=== PATIENT | female | born 1945 | race Caucasian/White ===

== ENCOUNTER 2018-11-30 07:18 | Inpatient (IN) | payer OTHER ==
[~2018-11-30] VITALS: Ht 149.9 cm; Wt 52.6 kg
--- NOTE | 2018-11-30 07:20 | NUR ---
MABEL CUEVAS ALS TO ER BED 07
--- NOTE | 2018-11-30 07:20 | NUR ---
MASON FROM HOME FOR WEAKNESS, BS 231. PT [place]OV[place] SPEAKING. PER EMS FOUND PT ON FLOOR & URINE INCONTINENT, TOOK SLEEPING PILLS BUT DOESN'T KNOW WHEN OR HOW MANY PILLS. PT AWAKE, ALERT, OREINTED. PERRL, BRISK, 2MM. FACIAL ASSYMETRY. MILD WEAKNESS STRENGTH TO RICHARD UPPER AND LOWER EXTREMITIES. PT PLACED ON FULL PEDIATRIC CNS. HOB UP. BED SIDE RAILS UP X 1. ON LOW BED POSITION, LOCKED ER MADE AWARE OF PT STATUS.
[2018-11-30 07:22] VITALS: BP 153/82
[2018-11-30] MEDS ORDERED: NACL 0.9% 500 ML IV SCH (07:25)
--- NOTE | 2018-11-30 07:30 | NUR ---
CODE BRAIN INITIATED. TO CT. SCAN MONITORED WITH RN
--- NOTE | 2018-11-30 07:53 | NUR ---
EKG AT BEDSIDE.
[2018-11-30 08:11] LABS: BASOPHILS % (AUTO) 0.1 % (0.0-2.0); EOSINOPHILS % (AUTO) 0.1 % (0.0-4.0); HEMATOCRIT 35.1 % (36-48); LYMPHOCYTES # (AUTO) 0.4 K/uL (2.5-16.5); LYMPHOCYTES % (AUTO) 7.1 % (20.5-51.1); MEAN CORPUSCULAR HEMOGLOBIN 31 pg (27-31); MEAN CORPUSCULAR HGB CONC 34 g/dL (33-37); MEAN CORPUSCULAR VOLUME 91.5 fL (80-94); MONOCYTES # (AUTO) 0.4 K/uL (0.8-1.0); MONOCYTES % (AUTO) 7.1 % (1.7-9.3); NEUTROPHILS # (AUTO) 5.1 K/uL (1.8-7.7); NEUTROPHILS % (AUTO) 85.6 % (42.2-75.2); PLATELET COUNT (AUTO) 126 K/uL (140-450); RED BLOOD CELL COUNT(AUTO) 3.83 MIL/uL (4.20-5.40); WHITE BLOOD COUNT (AUTO) 5.9 K/uL (4.8-10.8)
--- NOTE | 2018-11-30 08:36 | NUR ---
spoke with pt in Burundian via signal tower director #[id number]
[2018-11-30 09:06] LABS: CHLORIDE 97 mmol/L (98-107); POTASSIUM 3.9 mmol/L (3.5-5.1); SODIUM SERUM 138 mmol/L (136-145)
[2018-11-30 09:07] LABS: ANION GAP 15.6 (8-16); ASPARTATE AMINOTRANSFERASE 29 U/L (15-37); CARBON DIOXIDE 29.3 mmol/L (21-32); CREATININE 0.9 mg/dL (0.6-1.3); GLUCOSE 164 mg/dL (74-106); TOTAL BILIRUBIN 0.7 mg/dL (0.0-1.0); UREA NITROGEN, BLOOD 15 mg/dL (7-18)
[2018-11-30 09:08] LABS: ALBUMIN 3.6 g/dL (3.4-5.0)
[2018-11-30 09:08] LABS: APPEARANCE,URINE HAZY (CLEAR); BILIRUBIN,URINE NEGATIVE (NEGATIVE); BLOOD, URINE TRACE-L (NEGATIVE); COLOR,URINE YELLOW (YELLOW); LEUKOCYTE ESTERASE ,URINE NEGATIVE (NEGATIVE); NITRITE, URINE NEGATIVE (NEGATIVE); UGLUCOSE 3+ (NEGATIVE)
--- NOTE | 2018-11-30 09:08 | NUR ---
PT ASLEEP. EASILY AROUSABLE BY NAME. ABLE TO UNDERSTAND AND NOD TO YES OR NO QUESTIONS.
--- NOTE | 2018-11-30 09:12 | NUR ---
Ayo vilchis in [facility] - 11/30/18 at 1042 by MEDRAFAEL FAMILY AT BEDSIDE FOR PT VISITATION.
[2018-11-30 09:15] LABS: PROTHROMBIN TIME 9.3 secs (10.8-13.4)
[2018-11-30 09:22] LABS: RBC,URINE 0-5 /HPF (0-5); WBC,URINE 0-5 /HPF (0-5)
--- NOTE | 2018-11-30 09:25 | NUR ---
Ayo vilchis in [facility] - 11/30/18 at 1042 by RUBA FAMILY LEFT AT THIS TIME
[2018-11-30 09:26] LABS: BARBITURATE, URINE NEGATIVE ng/ml (NEG <=200); BENZODIAZEPINE, URINE NEGATIVE ng/mL (NEG <=200); CANNABINOID, URINE NEGATIVE ng/mL (NEG <=50); COCAINE, URINE NEGATIVE ng/mL (NEG <=300); PHENCYCLIDINE SCREEN,URINE NEGATIVE ng/mL (NEG <=25)
[2018-11-30 09:28] LABS: OPIATE, URINE NEGATIVE ng/mL (NEG <=2000)
--- NOTE | 2018-11-30 10:00 | NUR ---
STILL AWAITING FOR FAMILY
--- NOTE | 2018-11-30 10:15 | NUR ---
PT ASLEEP. EASILY AROUSABLE BY NAME. ACTING APPROPRIATELY. PT GIVEN SIPS OF WATER. OK TO GIVE WATER PER DR GRANT. PT TOLERATED WELL. NO SIGNS AND SYMPTOMS OF DISTRESS NOTED.
[2018-11-30] MEDS ORDERED: HYDROcodone/APAP 5/325 MG 1 TAB TAB PO PRN (10:45)
[2018-11-30] MEDS ORDERED: MORPHINE SULFATE 4 MG/ML SYR IVP PRN (10:45)
[2018-11-30] MEDS ORDERED: ACETAMINOPHEN 325 MG TAB PO PRN (10:45)
[2018-11-30] MEDS ORDERED: DOCUSATE SODIUM 100 MG GELCAP PO PRN (10:45)
[2018-11-30] MEDS ORDERED: ONDANSETRON 4 MG/2 ML VIAL IM/IVP PRN (10:45)
[2018-11-30] MEDS ORDERED: NACL 0.9% 1,000 ML IV ONE (10:50)
[2018-11-30] MEDS: NACL 0.9% 1,000 ML IV SCH ×2 (11:03→12:15)
--- NOTE | 2018-11-30 11:15 | NUR ---
PT'S CURRENT V/S IS 173/68, 97. DR MADE AWARE OF PT VITAL SIGNS. NO NEW ORDERS GIVEN AT THIS TIME.
--- NOTE | 2018-11-30 11:45 | NUR ---
Patient will be admitted to care of Dr. Kiser. Admited to Tele. Will go to room 121 B.. Belongings list completed. Report to ALVINA Lenz.
--- NOTE | 2018-11-30 11:45 | NUR ---
KRISHNA (PATIENT'S SON) CONTACT # [phone] CARLOS (PT'S FRIEND) CONTACT # [phone]
--- NOTE | 2018-11-30 11:49 | NUR ---
RECEIVED BEDSIDE REPORT FROM ED RN. PT IS [place] SPEAKING ONLY, WILL NEED TO COMPLETE SUBJECTIVE ASSESSMENT VIA INSURANCE APPRAISER. NO S/S DISTRESS. LUNGS CTA. ALL SAFETY PRECAUTIONS IN PLACE, WILL CONTINUE TO MONITOR.
[2018-11-30 11:58] LABS: FREE T4 (FREE THYROXINE) 1.03 ng/dL (0.76-1.46); MAGNESIUM 2.1 mg/dL (1.8-2.4); PHOSPHORUS 3.6 mg/dL (2.5-4.9); THYROID STIMULATING HORMONE 1.34 uIU/mL (0.34-3.74)
[2018-11-30 12:00] VITALS: BP 176/81
--- NOTE | 2018-11-30 12:10 | NUR ---
NOTIFIED DR. LEONE THAT PT'S BP IS 176/81.
--- NOTE | 2018-11-30 12:54 | NUR ---
ATTEMPTED TO OBTAIN ADMISSION ASSESSMENT VIA CORPORATE FINANCIAL ANALYST #[id number]. PER CORPORATE FINANCIAL ANALYST, PATIENT'S RESPONSE TO QUESTIONS DOES NOT MAKE SENSE. PT TALKING ABOUT "HOLE" AND "WEAR". UNABLE TO RESPOND APPROPRIATELY TO QUESTIONING. WILL ATTEMPT TO REACH FAMILY FOR ADMISSION ASSESSMENT QUESTIONS.
--- NOTE | 2018-11-30 12:57 | NUR ---
PAGED DR. FRANCOIS VIA [employer] FOR BP 176/81.
--- NOTE | 2018-11-30 13:14 | NUR ---
OBTAINED SOME ADMISSION ASSESSMENT INFO FROM NATASHA GRIFFITH [phone]. SON DOES NOT KNOW FULL HISTORY, AND PATIENT IS UNABLE TO ANSWER ADMISSION QUESTIONS NOW.
--- NOTE | 2018-11-30 13:59 | NUR ---
FOLLOWED UP WITH DR. FRANCOIS REGARDING BP. DR. FRANCOIS TO PLACE ORDER.
--- NOTE | 2018-11-30 14:36 | NUR ---
PT RESTING IN BED, EYES CLOSED, RESPIRATIONS EVEN AND UNLABORED. ALL SAFETY PRECAUTIONS IN PLACE, WILL CONTINUE TO MONITOR.
--- NOTE | 2018-11-30 14:43 | NUR ---
LEFT MESSAGE FOR CENTRAL SUPPLY TO BRING SCD'S.
[2018-11-30 15:00] VITALS: BP 181/81
[2018-11-30] MEDS ORDERED: ENALAPRILAT 2.5 MG/2 ML VIAL IVP SCH (15:00)
--- NOTE | 2018-11-30 17:42 | NUR ---
NOTIFIED DR. FRANCOIS THAT PATIENT HAS BEEN VERY CONFUSED. UNSURE IF PATIENT WOULD BE ABLE TO TAKE PO METOPROLOL JUST ORDERED NOW. DR. FRANCOIS TO START METOPROLOL TOMORROW, AFTER SWALLOW EVAL.
[2018-11-30] MEDS ORDERED: DEXTROSE 50% 50 ML SYR IVP PRN (17:50)
[2018-11-30] MEDS ORDERED: INSULIN LISPRO SLIDING SCALE 100 UNITS/ML VIAL SUBQ PRN (17:50)
[2018-11-30] MEDS ORDERED: METOPROLOL SUCCINATE 50 MG TABER PO SCH (18:00)
--- NOTE | 2018-11-30 18:15 | NUR ---
UNABLE TO SAFELY OBTAIN ORTHOSTATIC BP AT THIS TIME. PATIENT IS VERY CONFUSED. WILL ENDORSE.
[2018-11-30] MEDS: DEXT 5% / NACL 0.9% 500 ML IV SCH (18:29)
--- NOTE | 2018-11-30 18:31 | NUR ---
NATASHA SANDOVAL) AT BEDSIDE. ASKED SON TO BRING LIST OF HOME MEDICATIONS SOON POSSIBLE. SON VERBALIZED UNDERSTANDING.
--- NOTE | 2018-11-30 19:18 | NUR ---
ENDORSED POC TO WHEEL SETTER RN. PT IN STABLE CONDITION. ENDORSED ORTHOSTATIC BP. INFORMED WHEEL SETTER RN THAT SON HAS BEEN NOTIFIED TO BRING HOME MED LIST.
--- NOTE | 2018-11-30 19:30 | NUR ---
Received endorsement from AM shift RN; patient is A/Ox1, unable to answer questions, Moldovan speaking only. Son is present; introduced self, updated board. No SOB or distress noted, on room air. IV site on left wrist, 20 gauge, intact, running IVF at 60mL/hr. Skin intact. Shepherd in place. Bed in the lowest position, call light within reach. Initial assessment done. Will continue to monitor.
[2018-11-30 20:00] VITALS: BP 129/75
--- NOTE | 2018-11-30 20:40 | NUR ---
Vitals taken, no distress noted.
[2018-11-30] MEDS: BLOOD GLUCOSE MONITORING 1 DEV DEV FS SCH (21:53)
--- NOTE | 2018-11-30 22:35 | NUR ---
Rounds done; patient asleep, visible chest rise and fall noted.
[2018-12-01] VITALS: BP 141/73
--- NOTE | 2018-12-01 00:45 | NUR ---
Checks made; patient asleep. No distress noted.
[2018-12-01] MEDS: DEXT 5% / NACL 0.9% 500 ML IV SCH (02:05)
--- NOTE | 2018-12-01 02:27 | NUR ---
Frequent checks made; no SOB noted. Patient sleeping, visible chest rise and fall noted.
[2018-12-01 04:00] VITALS: BP 119/68
--- NOTE | 2018-12-01 04:10 | NUR ---
Vitals taken; patient asleep visible chest rise and fall noted.
[2018-12-01] MEDS: BLOOD GLUCOSE MONITORING 1 DEV DEV FS SCH ×4 (06:30→20:19)
[2018-12-01 06:50] LABS: BASOPHILS % (AUTO) 0.2 % (0.0-2.0); EOSINOPHILS # (AUTO) 0.1 K/uL (0-0.4); EOSINOPHILS % (AUTO) 1.1 % (0.0-4.0); HEMATOCRIT 32.1 % (36-48); HEMOGLOBIN 10.7 g/dL (12.0-16.0); LYMPHOCYTES # (AUTO) 1.1 K/uL (2.5-16.5); LYMPHOCYTES % (AUTO) 18.8 % (20.5-51.1); MEAN CORPUSCULAR HEMOGLOBIN 31 pg (27-31); MEAN CORPUSCULAR HGB CONC 33 g/dL (33-37); MEAN CORPUSCULAR VOLUME 91.7 fL (80-94); MONOCYTES # (AUTO) 0.5 K/uL (0.8-1.0); MONOCYTES % (AUTO) 8.8 % (1.7-9.3); NEUTROPHILS # (AUTO) 4.2 K/uL (1.8-7.7); NEUTROPHILS % (AUTO) 71.1 % (42.2-75.2); PLATELET COUNT (AUTO) 131 K/uL (140-450); RED CELL DISTRIBUTION WIDTH 13.5 % (11.6-13.7); WHITE BLOOD COUNT (AUTO) 5.9 K/uL (4.8-10.8)
--- NOTE | 2018-12-01 07:20 | NUR ---
Endorsed patient to AM shift RN for continuity of care; patient in stable condition.
--- NOTE | 2018-12-01 07:21 | NUR ---
RECEIVED BEDSIDE REPORT FROM SYSTEMS MECHANIC RN. PT IS AAOX1. NO S/S OF PAIN OR DISTRESS NOTED. LUNGS CLEAR. SKIN INTACT. IV L WRIST INFUSING D51/2NS AT 60. ALL SAFETY PRECAUTIONS IN PLACE. BED IN LOW POSITION, CALL LIGHT WITHIN REACH. WILL CONTINUE TO MONITOR.
[2018-12-01 07:40] LABS: ANION GAP 11.4 (8-16); CARBON DIOXIDE 25.8 mmol/L (21-32); CHLORIDE 106 mmol/L (98-107); CREATININE 0.8 mg/dL (0.6-1.3); GLUCOSE 107 mg/dL (74-106); POTASSIUM 3.2 mmol/L (3.5-5.1); SODIUM SERUM 140 mmol/L (136-145); UREA NITROGEN, BLOOD 10 mg/dL (7-18)
[2018-12-01 07:42] LABS: MAGNESIUM 1.9 mg/dL (1.8-2.4); PHOSPHORUS 2.2 mg/dL (2.5-4.9)
[2018-12-01 08:00] VITALS: BP 139/76
--- NOTE | 2018-12-01 08:29 | NUR ---
PATIENT HAS BEEN SCREENED AND CATEGORIZED MODERATE NUTRITION RISK. PATIENT WILL BE SEEN WITHIN 3-5 DAYS OF ADMISSION. 12/02/18RA [address]
--- NOTE | 2018-12-01 08:51 | NUR ---
PT POTASSIUM IS 3.2. CALLED MD TO NOTIFY. DR. PALACIO STATED HE WILL NOTIFY OF THE VALUE.
[2018-12-01] MEDS ORDERED: METOPROLOL SUCCINATE 50 MG TABER PO SCH (09:00)
[2018-12-01] MEDS: DEXT 5% /NACL 0.9% 1,000 ML IV SCH (09:42)
--- NOTE | 2018-12-01 10:01 | NUR ---
S.T. BEDSIDE SWALLOW EVAL COMPLETED See report for details. Pt presents with adequate oropharyngeal swallow function. Pt did cough x1 after large consecutive sips of thin liquids via straw, but it is suspected to be due to the large bolus and pt's impulsivity, as she was very hungry/thirsty at time of eval. A clinical dysphagia is not suspected.Pt demo'd no other overt s/s aspiration, able to self-feed w/o difficulty. Recommend: 1) Advance to regular diet, thin liquids okay. Straws ok. 2) P.O. meds okay whole, one at a time as tolerated. No further tx indicated at this time. [place] [facility] [place] [facility] [id number]
--- NOTE | 2018-12-01 10:47 | NUR ---
PT RESTING IN BED. NO SIGNS OF DISTRESS NOTED. HELPED PT AMBULATE TO RESTROOM FOR BOWEL MOVEMENT. PT WAS STEADY ON HER FEET BUT I STOOD BY FOR ASSISTANCE. PT TOLERATED WALKING WELL.
[2018-12-01 12:00] VITALS: BP 193/85
--- NOTE | 2018-12-01 12:24 | NUR ---
PT BP AT 193/85. DR. PALACIO NOTIFIED AND HE WILL ADD ORDERS FOR MEDICATION TO LOWER BP. AWAITING ORDERS NOW.
[2018-12-01] MEDS ORDERED: LABETALOL 100 MG/20 ML VIAL IV SCH (13:15)
--- NOTE | 2018-12-01 13:20 | NUR ---
RECHECKED PT BP BEFORE ADMINISTERING PRESCRIBED TRANDATE TO PT. NEW BP IS 165/78. NOTIFIED DR. PALACIO OF NEW FINDINGS AND PER HIS ORDER, TRANDATE WAS HELD AND NOT GIVEN TO PT. PT IN STABLE CONDITION AT THIS TIME. WILL CONTINUE TO ROUND FREQUENTLY ON PT.
--- NOTE | 2018-12-01 15:40 | NUR ---
PT RESTING IN BED. NO SIGNS OF DISTRESS NOTED. WILL CONTINUE TO ROUND FREQUENTLY.
[2018-12-01 16:00] VITALS: BP 129/72
[2018-12-01] MEDS ORDERED: POTASSIUM PHOSPHATE 15 MM in NACL 0.9% 250 ML IV ONE (17:05)
[2018-12-01] MEDS ORDERED: FURO-570 PO (17:09)
[2018-12-01] MEDS ORDERED: ASPI81EC98 PO (17:09)
[2018-12-01] MEDS ORDERED: LOSA50TA66 PO (17:09)
[2018-12-01] MEDS ORDERED: CALC500T19 PO (17:09)
--- NOTE | 2018-12-01 17:20 | NUR ---
PT FAMILY AT BEDSIDE. NO SIGNS OF DISTRESS AT THIS TIME. WILL CONTINUE TO ROUND FREQUENTLY ON PT.
[2018-12-01] MEDS: ENALAPRILAT 2.5 MG/2 ML VIAL IVP SCH ×2 (17:30→18:02)
--- NOTE | 2018-12-01 19:24 | NUR ---
ENDORSED PT TO SECURITY VEHICLE PATROL OFFICER FOR CONTINUITY OF CARE. PT IN STABLE CONDITION AT THIS TIME.
--- NOTE | 2018-12-01 19:25 | NUR ---
REPORT RECEIVED FROM AM NURSE AT BEDSIDE. PT IN STABLE CONDITION. AAOX2-3. INTRODUCED SELF TO PT. BOARD UPDATED. NO COMPLAINTS OF PAIN. NO SOB. AFEBRILE. IV SITE L WRIST 20G RUNNING D5NS@60ML/HR PATENT AND INTACT. SKIN WARM, DRY, AND INTACT WITH NO OPEN WOUNDS. PT HAS A BUSTOS IN PLACE. BED LOCKED IN LOW POSITION. CALL FLOWERS WITHIN REACH. SAFETY MEASURES IN PLACE. ALL NEEDS MET AT THIS TIME.
[2018-12-01 20:00] VITALS: BP 152/64
--- NOTE | 2018-12-01 20:15 | NUR ---
PT IN BED ATTEMPTING TO SLEEP. NO S/S OF DISTRESS NOTED. WILL CONTINUE TO MONITOR. Addendum: 12/01/18 at 4868 by Joseph Colon RN NOTE FOR [id number].
--- NOTE | 2018-12-01 20:19 | NUR ---
BS 201. 4 UNITS OF INSULIN GIVEN SUBQ. PT TOLERATED WELL.
[2018-12-02] VITALS: BP 152/70
--- NOTE | 2018-12-02 00:15 | NUR ---
PT SLEEPING BUT AROUSABLE. VS STABLE. NO S/S OF DISTRESS NOTED. PT AWAKE WHEN VS WERE TAKEN. WILL CONTINUE TO MONITOR.
[2018-12-02] MEDS: DEXT 5% /NACL 0.9% 1,000 ML IV SCH (01:58)
--- NOTE | 2018-12-02 02:10 | NUR ---
PT SLEEPING COMFORTABLY BUT AROUSABLE IN SUPINE POSITION. NO S/S OF DISTRESS NOTED. NO COMPLAINTS OF PAIN. NO SOB. AFEBRILE. WILL CONTINUE TO MONITOR.
--- NOTE | 2018-12-02 04:05 | NUR ---
PT SLEEPING COMFORTABLY IN BED. NO S/S OF DISTRESS NOTED. NO COMPLAINTS OF PAIN. NO SOB. AFEBRILE. WILL CONTINUE TO MONITOR.
[2018-12-02] MEDS: BLOOD GLUCOSE MONITORING 1 DEV DEV FS SCH ×2 (05:37→11:41)
--- NOTE | 2018-12-02 05:37 | NUR ---
BS 92. NO INSULIN COVERAGE NEEDED.
[2018-12-02 07:02] LABS: BASOPHILS % (AUTO) 0.2 % (0.0-2.0); EOSINOPHILS # (AUTO) 0.2 K/uL (0-0.4); EOSINOPHILS % (AUTO) 2.8 % (0.0-4.0); HEMATOCRIT 32.6 % (36-48); LYMPHOCYTES # (AUTO) 1.7 K/uL (2.5-16.5); LYMPHOCYTES % (AUTO) 25.7 % (20.5-51.1); MEAN CORPUSCULAR HEMOGLOBIN 31 pg (27-31); MEAN CORPUSCULAR HGB CONC 34 g/dL (33-37); MEAN CORPUSCULAR VOLUME 91.3 fL (80-94); MONOCYTES # (AUTO) 0.5 K/uL (0.8-1.0); NEUTROPHILS # (AUTO) 4.1 K/uL (1.8-7.7); NEUTROPHILS % (AUTO) 63.3 % (42.2-75.2); PLATELET COUNT (AUTO) 136 K/uL (140-450); RED BLOOD CELL COUNT(AUTO) 3.57 MIL/uL (4.20-5.40); RED CELL DISTRIBUTION WIDTH 12.8 % (11.6-13.7); WHITE BLOOD COUNT (AUTO) 6.5 K/uL (4.8-10.8)
--- NOTE | 2018-12-02 07:20 | NUR ---
RECEIVED BEDSIDE REPORT FROM ALVINA DELUNA. PT STABLE, SLEEPING, BUT EASILY AROUSABLE. NO SIGNS OF DISTRESS NOTED. NO REDNESS, SWELLING, OR INFLAMMATION NOTED ON IV SITE. CALL FLOWERS WITHIN REACH. BED IN LOWEST POSITION, BED ALARM ON. SAFETY MEASURES IN PLACE. PLAN OF CARE REVIEWED.
--- NOTE | 2018-12-02 07:22 | NUR ---
REPORT GIVEN TO AM NURSE AT BEDSIDE. PT IN STABLE CONDITION.
[2018-12-02 07:42] LABS: ANION GAP 11.3 (8-16); CARBON DIOXIDE 26.4 mmol/L (21-32); CHLORIDE 106 mmol/L (98-107); CREATININE 0.7 mg/dL (0.6-1.3); GLUCOSE 99 mg/dL (74-106); POTASSIUM 3.7 mmol/L (3.5-5.1); SODIUM SERUM 140 mmol/L (136-145); UREA NITROGEN, BLOOD 13 mg/dL (7-18)
[2018-12-02 07:49] LABS: MAGNESIUM 1.9 mg/dL (1.8-2.4); PHOSPHORUS 2.8 mg/dL (2.5-4.9)
[2018-12-02 08:00] VITALS: BP 136/91
[2018-12-02] MEDS ORDERED: METOPROLOL SUCCINATE 50 MG TABER PO SCH (09:00)
[2018-12-02] MEDS ORDERED: ASPIRIN 81 MG TAB.CHEW PO SCH (09:00)
[2018-12-02] MEDS ORDERED: CALCIUM CARBONATE 500 MG TAB PO SCH (09:00)
[2018-12-02] MEDS ORDERED: LOSARTAN 50 MG TAB PO SCH (09:00)
[2018-12-02] MEDS ORDERED: FUROSEMIDE 40 MG TAB PO SCH (09:00)
--- NOTE | 2018-12-02 09:33 | NUR ---
ADMINISTERED SCHEDULED MEDICATIONS, PT TOLERATED WELL. NO OTHER NEEDS AT THIS TIME.
--- NOTE | 2018-12-02 10:20 | NUR ---
PT AMBULATED TO THE BATHROOM WITH ASSIST.
--- NOTE | 2018-12-02 11:50 | NUR ---
SPOKE WITH DR FRANCOIS REGARDING PT'S DISCHARGE. PER MD, PT WILL BE DISCHARGED THIS AFTERNOON.
--- NOTE | 2018-12-02 12:50 | NUR ---
FAMILY AT THE BEDSIDE. MADE SON MITCH AWARE THAT D/C ORDER IS STILL PENDING.
--- NOTE | 2018-12-02 13:20 | NUR ---
DR FRANCOIS AT BEDSIDE.
--- NOTE | 2018-12-02 14:35 | NUR ---
D/C INSTRUCTIONS AND PAPERWORK GIVEN, PT AND FAMILY VERBALIZED UNDERSTANDING. QUESTIONS AND CONCERNS WERE ADDRESSED. D/C IV, CATHETER TIP INTACT, BLEEDING CONTROLLED. D/C BUSTOS CATHETER PER MD ORDER. SKIN INTACT, PT REFUSED PNEUMONIA VACCINE. PT STABLE, AMBULATED TO THE HALLWAY WITH STEADY GAIT. ESCORTED PT AND FAMILY TO THE LOBBY.
== END 2018-12-02 14:35 | disposition home or self-care (01) | DRG 77 ==
LOC: MED 07:18 → MTU 11:20
PROVIDERS: ADMIT General Practice; ATTEND General Practice
DX: I67.4 Hypertensive encephalopathy (principal); G92 Toxic encephalopathy; E87.2 Acidosis; E78.5 Hyperlipidemia, unspecified; E11.65 Type 2 diabetes mellitus with hyperglycemia; I10 Essential (primary) hypertension; E86.0 Dehydration; E11.9 Type 2 diabetes mellitus without complications; E83.39 Other disorders of phosphorus metabolism; E87.6 Hypokalemia; E83.51 Hypocalcemia; D64.9 Anemia, unspecified
CPT/HCPCS: 36415; 36600; 51702; 70450; 71045; 80048; 80053; 80305; 81001; 82150; 82550; 82803; 82948; 83036; 83605; 83690; 83735; 83880; 84100; 84439; 84443; 84484; 85025; 85610; 85730; 87040; 87081; 87086; 92610; 93005; 93880; 96360; 97116; 99291; J1815; J3490; J7030; J7042; Q0092

== ENCOUNTER 2019-03-11 22:55 | Emergency (ER) | payer OTHER ==
[~2019-03-11] VITALS: Ht 142.2 cm; Wt 47.6 kg
[~2019-03-11 22:55] MED LIST: ASPI81EC98 PO; CALC500T19 PO; FURO-570 PO; LOSA50TA66 PO
[2019-03-11 23:00] VITALS: BP 200/90
[2019-03-12] MEDS ORDERED: MORPHINE SULFATE 2 MG/ML SYR IM ONE
[2019-03-12 00:30] VITALS: BP 191/78
== END 2019-03-12 00:29 | disposition home or self-care (01) ==
LOC: MED 22:55
DX: M54.40 Lumbago with sciatica, unspecified side (principal); E11.9 Type 2 diabetes mellitus without complications; I10 Essential (primary) hypertension; Z79.899 Other long term (current) drug therapy; Z79.82 Long term (current) use of aspirin
CPT/HCPCS: 72131; 96372; 99284; J2270

== ENCOUNTER 2023-07-08 09:12 | Emergency (ER) | payer OTHER ==
[~2023-07-08] VITALS: Ht 147.3 cm; Wt 51.7 kg
[2023-07-08 09:24] VITALS: BP 147/81; PULSE 84; RESP 18; TEMP 97.8; O2SAT 97
[2023-07-08] MEDS ORDERED: KETOROLAC 60 MG/2 ML VIAL IM ONE (12:45)
[2023-07-08] MEDS ORDERED: IBUP-1842 PO (12:50)
[2023-07-08 12:55] VITALS: BP 147/81; PULSE 84; RESP 18; TEMP 97.8; O2SAT 97
== END 2023-07-08 12:55 | disposition home or self-care (01) ==
LOC: MED 09:12
DX: R51.9 Headache, unspecified (principal); I10 Essential (primary) hypertension; Z79.899 Other long term (current) drug therapy; Z79.82 Long term (current) use of aspirin
CPT/HCPCS: 70450; 81002; 96372; 99285; J1885